=== PATIENT | female | born 1970 | race Caucasian/White ===

== ENCOUNTER 2021-10-13 12:49 | Emergency (ER) | payer BC ==
[2021-10-13] MEDS ORDERED: Morphine 10 MG/ML VIAL ONE (13:10)
[2021-10-13] MEDS ORDERED: Aspirin Chewable 81 MG TAB ONE (13:10)
[2021-10-13] MEDS ORDERED: diphenhydrAMINE 50 MG/ML VIAL ONE (13:22)
[2021-10-13 13:25] LABS: ALT (SGPT) 21 U/L (8-55); AST (SGOT) 20 U/L (5-34); Albumin 4.3 g/dL (3.5-5.0); Alkaline Phosphatase 84 U/L (40-110); Anion Gap 17 mmol/L (10-20); BUN (Urea Nitrogen) 10 mg/dL (9.8-20.1); Bilirubin, Total 0.3 mg/dL (0.2-1.2); Calc. Creatinine Clearance 0 mL/min (70-130); Calcium 9.7 mg/dL (7.8-10.44); Carbon Dioxide 20 mmol/L (22-29); Chloride 107 mmol/L (98-107); Glucose 101 mg/dL (70-105); Potassium 3.5 mmol/L (3.5-5.1); Protein, Total 7.3 g/dL (6.0-8.3); Sodium 140 mmol/L (136-145)
[2021-10-13] MEDS ORDERED: Nitroglycerin 2% Ointment 1 INCH/1 GM Packet ONE (15:09)
[2021-10-13] MEDS ORDERED: Morphine 4 MG/ML VIAL ONE (15:09)
[2021-10-13 17:11] LABS: Mean Corpuscular HGB CONC 34.1 g/dL (32.0-36.0); Mean Corpuscular Hemoglobin 30.6 pg (27.0-31.0); Mean Corpuscular Volume 89.9 fL (78.0-98.0); Mean Platelet Volume 7.6 fL (7.4-10.4); Platelet Count 324 thou/uL (130-400); RBC Distribution Width 11.5 % (11.5-14.5); Red Blood Cell (RBC) Count 4.57 mill/uL (4.20-5.40)
== END 2021-10-13 15:32 | disposition home or self-care (01) ==
LOC: BURERS 12:49
DX: R07.9 Chest pain, unspecified (principal); R94.31 Abnormal electrocardiogram [ECG] [EKG]
CPT/HCPCS: 71045; 71275; 80053; 83880; 84484; 85025; 93005; 96374; 96375; 96376; J1200; J2270

== ENCOUNTER 2025-08-19 14:15 | Emergency (ER) | payer BC ==
[2025-08-19] MEDS ORDERED: Tetracaine 0.5% PF 4 ML BOT ONE (15:05)
== END 2025-08-19 15:26 | disposition home or self-care (01) ==
LOC: BURERS 14:15
DX: H10.9 Unspecified conjunctivitis (principal); Z85.3 Personal history of malignant neoplasm of breast
CPT/HCPCS: 99282